=== PATIENT | male | born 1960 | race Caucasian/White ===

== ENCOUNTER 2021-12-29 19:41 | Inpatient (IN) ==
[2021-12-30] MEDS ORDERED: Ondansetron 4 MG/2 ML VIAL IVP PRN (00:31)
[2021-12-30] MEDS ORDERED: Naloxone 0.4 MG/ML INJ IVP PRN (00:31)
[2021-12-30] MEDS ORDERED: Thiamine (B-1) 100 MG in 0.9 % Sodium Chloride 50 ML IVPB STA (00:33)
[2021-12-30] MEDS ORDERED: *HR* LORazepam 2 MG/ML VIAL IVP PRN ×3 (00:33)
[2021-12-30 00:43] LABS: VBG HCO3 17 mEq/L (21-27); VBG PCO2 34 mmHg (41-51); VBG PO2 96 mmHg (25-50)
[2021-12-30 00:52] LABS: Acetaminophen < 10 mcg/mL (10-20); Creatine Kinase 127 Units/L (30-223); Salicylate < 2.5 mg/dL (15.0-30.0)
[2021-12-30 01:04] LABS: Basophils # 0.1 K/mcL (0.0-0.2); Basophils % 0.6 %; Eosinophils # 0.1 K/mcL (0.0-0.6); Eosinophils % 0.7 %; Hematocrit 29.9 % (37.5-50.1); Hemoglobin 10.9 g/dL (12.9-16.9); Immature Granulocytes % 0.5 % (0-4); Lymphocytes # 1.6 K/mcL (0.6-4.6); Lymphocytes % 19.9 %; Mean Corpuscular HGB Conc 36.5 g/dL (31.6-35.5); Mean Corpuscular Hemoglobin 35.4 pg (28.0-33.3); Mean Corpuscular Volume 97.1 fL (83.0-100.0); Mean Platelet Volume 9.4 fL (9.4-12.4); Monocytes % 12.7 %; Neutrophils # 5.3 K/mcL (1.6-8.9); Platelet Count 202 K/mcL (140-400); Red Blood Count 3.08 M/mcL (4.19-5.50); Red Cell Distribution Width 13.9 % (11.5-14.5); Segmented Neutrophils % 65.6 %; White Blood Count 8.1 K/mcL (4.3-11.1)
[2021-12-30 01:06] LABS: Alanine Aminotransferase 14 Units/L (7-52); Albumin 3.6 g/dL (3.5-5.7); Albumin/Globulin Ratio 1.3 (1.1-2.2); Alkaline Phosphatase 57 Units/L (34-104); Aspartate Amino Transferase 18 Units/L (13-39); BUN/Creatinine Ratio 18 (6-26); Bilirubin,Total 0.7 mg/dL (0.3-1.0); Blood Urea Nitrogen 16 mg/dL (8-23); Calcium 8.2 mg/dL (8.6-10.3); Carbon Dioxide 16 mEq/L (23-29); Chloride 103 mEq/L (98-107); Globulin 2.7 g/dL (2.4-3.5); Glucose 86 mg/dL (70-105); Magnesium 2.1 mg/dL (1.6-2.6); Osmolality,Calculated 266 (280-300); Phosphorous 3.7 mg/dL (2.7-4.5); Potassium 3.7 mEq/L (3.5-5.1); Sodium 128 mEq/L (136-145); Total Protein 6.3 g/dL (6.4-8.9); eGFR For African Americans > 60 (> 60); eGFR For Non-African Americans > 60 (> 60)
[2021-12-30] MEDS: Calcium Gluconate 1gm/50mL 1 GM/50 ML BAG IVPB SCH ×2 (02:07→03:08)
[2021-12-30 03:29] LABS: Prothrombin Time 11.5 Seconds (9.4-12.1)
[2021-12-30 03:32] LABS: Activated Partial Thrombo Time 28.9 Seconds (26.0-36.0)
[2021-12-30] MEDS ORDERED: Phenytoin 1,000 MG, 0.22 MICRON FILTER SET 1 EACH in 0.9 % Sodium Chloride 50 ML IVPB ONE (05:06)
[2021-12-30] MEDS ORDERED: D5% in Water 1,000 ML IVC PRN (05:15)
[2021-12-30] MEDS ORDERED: *HR* Dextrose 50 % in Water (Syg) 50 ML SYRINGE IVP PRN (05:15)
[2021-12-30] MEDS ORDERED: Dextrose 4 GM Chewable Tablets PO PRN ×2 (05:15)
[2021-12-30] MEDS: *HR* Enoxaparin 40 MG/0.4 ML SYRINGE SQ SCH (06:08)
[2021-12-30 07:00] LABS: Thyroid Stimulating Hormone 2.144 mcIU/mL (0.340-5.600)
[2021-12-30] MEDS: 0.9 % Sodium Chloride 1,000 ML IVC SCH ×2 (07:09→21:21)
[2021-12-30] MEDS: Thiamine (B-1) 100 MG TABLET PO SCH (11:32)
[2021-12-30] MEDS: Nicotine 14 MG PATCH.TD24 TD SCH (11:32)
[2021-12-30] MEDS: Folic Acid 1 MG TABLET PO SCH (11:32)
[2021-12-30] MEDS: Lactobacillus 1 EACH CAP.SPRINK PO SCH ×2 (11:32→21:23)
[2021-12-30] MEDS: Doxycycline 100 MG CAPSULE PO SCH ×2 (11:32→21:23)
[2021-12-30] MEDS: Vitamin B Complex/Vit C/Vit E 1 EACH TABLET PO SCH (11:32)
[2021-12-30] MEDS: Cyanocobalamin (B-12) 1,000 MCG TABLET PO SCH (11:34)
[2021-12-30] MEDS: PrednisoLONE Acetate 1% Opth 5 ML BOTTLE LEFT EYE SCH ×2 (11:34→21:23)
[2021-12-30] MEDS: Melatonin 3 MG TABLET PO PRN (21:23)
[2021-12-31 01:29] LABS: Basophils # 0.1 K/mcL (0.0-0.2); Basophils % 0.7 %; Eosinophils # 0.1 K/mcL (0.0-0.6); Eosinophils % 1.8 %; Hematocrit 29.5 % (37.5-50.1); Hemoglobin 10.6 g/dL (12.9-16.9); Immature Granulocytes % 0.4 % (0-4); Lymphocytes # 1.9 K/mcL (0.6-4.6); Lymphocytes % 25.2 %; Mean Corpuscular HGB Conc 35.9 g/dL (31.6-35.5); Mean Corpuscular Hemoglobin 35.7 pg (28.0-33.3); Mean Corpuscular Volume 99.3 fL (83.0-100.0); Mean Platelet Volume 9.7 fL (9.4-12.4); Monocytes # 0.8 K/mcL (0.0-1.3); Monocytes % 9.9 %; Neutrophils # 4.7 K/mcL (1.6-8.9); Platelet Count 218 K/mcL (140-400); Red Blood Count 2.97 M/mcL (4.19-5.50); Red Cell Distribution Width 14.2 % (11.5-14.5); White Blood Count 7.6 K/mcL (4.3-11.1)
[2021-12-31 01:50] LABS: Alanine Aminotransferase 14 Units/L (7-52); Albumin 3.5 g/dL (3.5-5.7); Albumin/Globulin Ratio 1.5 (1.1-2.2); Alkaline Phosphatase 63 Units/L (34-104); Aspartate Amino Transferase 16 Units/L (13-39); BUN/Creatinine Ratio 24 (6-26); Bilirubin,Total 0.5 mg/dL (0.3-1.0); Blood Urea Nitrogen 20 mg/dL (8-23); Calcium 8.1 mg/dL (8.6-10.3); Carbon Dioxide 19 mEq/L (23-29); Chloride 106 mEq/L (98-107); Globulin 2.3 g/dL (2.4-3.5); Glucose 144 mg/dL (70-105); Magnesium 1.6 mg/dL (1.6-2.6); Osmolality,Calculated 277 (280-300); Phosphorous 3.7 mg/dL (2.7-4.5); Potassium 4.2 mEq/L (3.5-5.1); Sodium 131 mEq/L (136-145); Total Protein 5.8 g/dL (6.4-8.9); eGFR For African Americans > 60 (> 60); eGFR For Non-African Americans > 60 (> 60)
[2021-12-31 01:51] LABS: % Iron Saturation 48 % (20-55); Iron 110 mcg/dL (65-175); Transferrin 163 mg/dL (203-362)
[2021-12-31 02:08] LABS: Ferritin 229 ng/mL (20-250)
[2021-12-31 02:13] LABS: Folate 7.1 ng/mL (3.0-16.0)
[2021-12-31 02:20] LABS: Vitamin B12 > 1500 pg/mL (250-1100)
[2021-12-31] MEDS: *HR* Enoxaparin 40 MG/0.4 ML SYRINGE SQ SCH (06:07)
[2021-12-31] MEDS: Vitamin B Complex/Vit C/Vit E 1 EACH TABLET PO SCH (07:56)
[2021-12-31] MEDS: Thiamine (B-1) 100 MG TABLET PO SCH (07:56)
[2021-12-31] MEDS: Lactobacillus 1 EACH CAP.SPRINK PO SCH ×2 (07:56→20:14)
[2021-12-31] MEDS: Cyanocobalamin (B-12) 1,000 MCG TABLET PO SCH (07:56)
[2021-12-31] MEDS: Doxycycline 100 MG CAPSULE PO SCH ×2 (07:56→20:13)
[2021-12-31] MEDS: Nicotine 14 MG PATCH.TD24 TD SCH (07:57)
[2021-12-31] MEDS: Folic Acid 1 MG TABLET PO SCH (07:57)
[2021-12-31] MEDS: PrednisoLONE Acetate 1% Opth 5 ML BOTTLE LEFT EYE SCH ×2 (07:59→20:15)
[2021-12-31] MEDS: Melatonin 3 MG TABLET PO PRN (20:13)
[2022-01-01] MEDS ORDERED: Haloperidol Lactate 5 MG/ML VIAL IM ONE (00:28)
[2022-01-01] MEDS: *HR* Enoxaparin 40 MG/0.4 ML SYRINGE SQ SCH (06:30)
[2022-01-01] MEDS: Cyanocobalamin (B-12) 1,000 MCG TABLET PO SCH (07:29)
[2022-01-01] MEDS: Thiamine (B-1) 100 MG TABLET PO SCH (07:29)
[2022-01-01] MEDS: Folic Acid 1 MG TABLET PO SCH (07:29)
[2022-01-01] MEDS: Vitamin B Complex/Vit C/Vit E 1 EACH TABLET PO SCH (07:29)
[2022-01-01] MEDS: Lactobacillus 1 EACH CAP.SPRINK PO SCH ×2 (07:30→20:35)
[2022-01-01] MEDS: Doxycycline 100 MG CAPSULE PO SCH ×2 (09:35→20:35)
[2022-01-01] MEDS: Nicotine 14 MG PATCH.TD24 TD SCH (09:36)
[2022-01-01] MEDS: PrednisoLONE Acetate 1% Opth 5 ML BOTTLE LEFT EYE SCH ×2 (09:36→20:36)
[2022-01-01] MEDS: traZODone 50 MG TABLET PO PRN (20:35)
[2022-01-02] MEDS: *HR* Enoxaparin 40 MG/0.4 ML SYRINGE SQ SCH (06:51)
[2022-01-02 08:19] LABS: Basophils # 0.1 K/mcL (0.0-0.2); Basophils % 1.2 %; Eosinophils # 0.3 K/mcL (0.0-0.6); Eosinophils % 4.1 %; Hematocrit 34.3 % (37.5-50.1); Hemoglobin 11.7 g/dL (12.9-16.9); Immature Granulocytes % 0.4 % (0-4); Lymphocytes # 2.2 K/mcL (0.6-4.6); Lymphocytes % 29.2 %; Mean Corpuscular HGB Conc 34.1 g/dL (31.6-35.5); Mean Corpuscular Hemoglobin 33.9 pg (28.0-33.3); Mean Corpuscular Volume 99.4 fL (83.0-100.0); Mean Platelet Volume 9.5 fL (9.4-12.4); Monocytes # 0.8 K/mcL (0.0-1.3); Monocytes % 10.7 %; Platelet Count 290 K/mcL (140-400); Red Blood Count 3.45 M/mcL (4.19-5.50); Red Cell Distribution Width 14.2 % (11.5-14.5); Segmented Neutrophils % 54.4 %; White Blood Count 7.4 K/mcL (4.3-11.1)
[2022-01-02 08:35] LABS: BUN/Creatinine Ratio 29 (6-26); Blood Urea Nitrogen 23 mg/dL (8-23); Carbon Dioxide 22 mEq/L (23-29); Chloride 102 mEq/L (98-107); Glucose 90 mg/dL (70-105); Magnesium 1.5 mg/dL (1.6-2.6); Osmolality,Calculated 275 (280-300); Potassium 4.2 mEq/L (3.5-5.1); Sodium 131 mEq/L (136-145); eGFR For African Americans > 60 (> 60); eGFR For Non-African Americans > 60 (> 60)
[2022-01-02] MEDS: Thiamine (B-1) 100 MG TABLET PO SCH (09:59)
[2022-01-02] MEDS: Vitamin B Complex/Vit C/Vit E 1 EACH TABLET PO SCH (09:59)
[2022-01-02] MEDS: Cyanocobalamin (B-12) 1,000 MCG TABLET PO SCH (09:59)
[2022-01-02] MEDS: Lactobacillus 1 EACH CAP.SPRINK PO SCH ×2 (09:59→20:06)
[2022-01-02] MEDS: Doxycycline 100 MG CAPSULE PO SCH ×2 (09:59→20:06)
[2022-01-02] MEDS: Folic Acid 1 MG TABLET PO SCH (09:59)
[2022-01-02] MEDS: Nicotine 14 MG PATCH.TD24 TD SCH (10:00)
[2022-01-02] MEDS: PrednisoLONE Acetate 1% Opth 5 ML BOTTLE LEFT EYE SCH ×2 (10:01→20:06)
[2022-01-02] MEDS: traZODone 50 MG TABLET PO PRN (20:06)
[2022-01-02] MEDS: Melatonin 3 MG TABLET PO PRN (20:06)
[2022-01-03] MEDS: *HR* Enoxaparin 40 MG/0.4 ML SYRINGE SQ SCH (04:59)
[2022-01-03] MEDS: Doxycycline 100 MG CAPSULE PO SCH ×2 (08:44→20:24)
[2022-01-03] MEDS: Lactobacillus 1 EACH CAP.SPRINK PO SCH ×2 (08:45→20:24)
[2022-01-03] MEDS: Cyanocobalamin (B-12) 1,000 MCG TABLET PO SCH (08:45)
[2022-01-03] MEDS: Folic Acid 1 MG TABLET PO SCH (08:45)
[2022-01-03] MEDS: Vitamin B Complex/Vit C/Vit E 1 EACH TABLET PO SCH (08:45)
[2022-01-03] MEDS: Thiamine (B-1) 100 MG TABLET PO SCH (08:45)
[2022-01-03] MEDS: Nicotine 14 MG PATCH.TD24 TD SCH (08:46)
[2022-01-03] MEDS: PrednisoLONE Acetate 1% Opth 5 ML BOTTLE LEFT EYE SCH ×2 (08:47→20:24)
[2022-01-03] MEDS: Melatonin 3 MG TABLET PO PRN (20:23)
[2022-01-03] MEDS: traZODone 50 MG TABLET PO PRN (20:24)
[2022-01-04 03:40] LABS: BUN/Creatinine Ratio 40 (6-26); Blood Urea Nitrogen 37 mg/dL (8-23); Calcium 8.4 mg/dL (8.6-10.3); Carbon Dioxide 23 mEq/L (23-29); Chloride 102 mEq/L (98-107); Glucose 98 mg/dL (70-105); Magnesium 1.7 mg/dL (1.6-2.6); Osmolality,Calculated 283 (280-300); Potassium 4.7 mEq/L (3.5-5.1); Sodium 132 mEq/L (136-145); eGFR For African Americans > 60 (> 60); eGFR For Non-African Americans > 60 (> 60)
[2022-01-04] MEDS: *HR* Enoxaparin 40 MG/0.4 ML SYRINGE SQ SCH (05:01)
[2022-01-04] MEDS: Nicotine 14 MG PATCH.TD24 TD SCH (08:34)
[2022-01-04] MEDS: Thiamine (B-1) 100 MG TABLET PO SCH (08:34)
[2022-01-04] MEDS: Vitamin B Complex/Vit C/Vit E 1 EACH TABLET PO SCH (08:34)
[2022-01-04] MEDS: Doxycycline 100 MG CAPSULE PO SCH (08:34)
[2022-01-04] MEDS: Folic Acid 1 MG TABLET PO SCH (08:34)
[2022-01-04] MEDS: Lactobacillus 1 EACH CAP.SPRINK PO SCH (08:34)
[2022-01-04] MEDS: Cyanocobalamin (B-12) 1,000 MCG TABLET PO SCH (08:34)
[2022-01-04] MEDS: PrednisoLONE Acetate 1% Opth 5 ML BOTTLE LEFT EYE SCH (08:35)
[2022-01-05] MEDS: Lactobacillus 1 EACH CAP.SPRINK PO SCH ×3 (00:34→20:05)
[2022-01-05] MEDS: PrednisoLONE Acetate 1% Opth 5 ML BOTTLE LEFT EYE SCH ×3 (00:35→20:06)
[2022-01-05] MEDS: Doxycycline 100 MG CAPSULE PO SCH ×3 (00:35→20:05)
[2022-01-05 03:40] LABS: BUN/Creatinine Ratio 43 (6-26); Blood Urea Nitrogen 38 mg/dL (8-23); Calcium 9.1 mg/dL (8.6-10.3); Carbon Dioxide 23 mEq/L (23-29); Chloride 97 mEq/L (98-107); Glucose 95 mg/dL (70-105); Osmolality,Calculated 275 (280-300); Potassium 4.5 mEq/L (3.5-5.1); Sodium 128 mEq/L (136-145); eGFR For African Americans > 60 (> 60); eGFR For Non-African Americans > 60 (> 60)
[2022-01-05] MEDS: *HR* Enoxaparin 40 MG/0.4 ML SYRINGE SQ SCH (06:38)
[2022-01-05] MEDS: Nicotine 14 MG PATCH.TD24 TD SCH (09:56)
[2022-01-05] MEDS: Folic Acid 1 MG TABLET PO SCH (09:56)
[2022-01-05] MEDS: Vitamin B Complex/Vit C/Vit E 1 EACH TABLET PO SCH (09:56)
[2022-01-05] MEDS: Thiamine (B-1) 100 MG TABLET PO SCH (09:57)
[2022-01-05] MEDS: Cyanocobalamin (B-12) 1,000 MCG TABLET PO SCH (09:57)
[2022-01-05] MEDS: Acetaminophen 325 MG TABLET PO PRN (19:36)
[2022-01-05] MEDS: Melatonin 3 MG TABLET PO PRN (20:05)
[2022-01-05] MEDS: traZODone 50 MG TABLET PO PRN (20:05)
[2022-01-06] MEDS: *HR* Enoxaparin 40 MG/0.4 ML SYRINGE SQ SCH (05:27)
[2022-01-06 08:12] LABS: Basophils # 0.1 K/mcL (0.0-0.2); Basophils % 1.2 %; Eosinophils # 0.2 K/mcL (0.0-0.6); Eosinophils % 3.2 %; Hematocrit 32.7 % (37.5-50.1); Hemoglobin 11.1 g/dL (12.9-16.9); Immature Granulocytes % 0.4 % (0-4); Lymphocytes # 2.7 K/mcL (0.6-4.6); Lymphocytes % 38.7 %; Mean Corpuscular HGB Conc 33.9 g/dL (31.6-35.5); Mean Corpuscular Hemoglobin 34.4 pg (28.0-33.3); Mean Corpuscular Volume 101.2 fL (83.0-100.0); Mean Platelet Volume 9.7 fL (9.4-12.4); Monocytes # 0.8 K/mcL (0.0-1.3); Monocytes % 11.9 %; Neutrophils # 3.1 K/mcL (1.6-8.9); Platelet Count 267 K/mcL (140-400); Red Blood Count 3.23 M/mcL (4.19-5.50); Red Cell Distribution Width 14.3 % (11.5-14.5); Segmented Neutrophils % 44.6 %; White Blood Count 6.9 K/mcL (4.3-11.1)
[2022-01-06 08:24] LABS: BUN/Creatinine Ratio 40 (6-26); Blood Urea Nitrogen 34 mg/dL (8-23); Calcium 9.2 mg/dL (8.6-10.3); Carbon Dioxide 22 mEq/L (23-29); Chloride 102 mEq/L (98-107); Glucose 93 mg/dL (70-105); Osmolality,Calculated 279 (280-300); Potassium 4.8 mEq/L (3.5-5.1); Sodium 131 mEq/L (136-145); eGFR For African Americans > 60 (> 60); eGFR For Non-African Americans > 60 (> 60)
[2022-01-06] MEDS: Folic Acid 1 MG TABLET PO SCH (08:48)
[2022-01-06] MEDS: Cyanocobalamin (B-12) 1,000 MCG TABLET PO SCH (08:48)
[2022-01-06] MEDS: Vitamin B Complex/Vit C/Vit E 1 EACH TABLET PO SCH (08:48)
[2022-01-06] MEDS: Doxycycline 100 MG CAPSULE PO SCH (08:48)
[2022-01-06] MEDS: PrednisoLONE Acetate 1% Opth 5 ML BOTTLE LEFT EYE SCH ×2 (08:49→20:13)
[2022-01-06] MEDS: Thiamine (B-1) 100 MG TABLET PO SCH (08:49)
[2022-01-06] MEDS: Nicotine 14 MG PATCH.TD24 TD SCH (08:49)
[2022-01-06] MEDS: Lactobacillus 1 EACH CAP.SPRINK PO SCH ×2 (08:49→20:11)
[2022-01-06] MEDS: traZODone 50 MG TABLET PO PRN (20:11)
[2022-01-06] MEDS: Acetaminophen 325 MG TABLET PO PRN (20:11)
[2022-01-06] MEDS: Melatonin 3 MG TABLET PO PRN (20:12)
[2022-01-07 07:46] VITALS: BP 106/61; PULSE 70; TEMP 98.2; O2SAT 99
[2022-01-07] MEDS: *HR* Enoxaparin 40 MG/0.4 ML SYRINGE SQ SCH (10:49)
[2022-01-07] MEDS: Lactobacillus 1 EACH CAP.SPRINK PO SCH (10:49)
[2022-01-07] MEDS: PrednisoLONE Acetate 1% Opth 5 ML BOTTLE LEFT EYE SCH (10:50)
[2022-01-07] MEDS: Folic Acid 1 MG TABLET PO SCH (10:50)
[2022-01-07] MEDS: Vitamin B Complex/Vit C/Vit E 1 EACH TABLET PO SCH (10:50)
[2022-01-07] MEDS: Nicotine 14 MG PATCH.TD24 TD SCH (10:50)
[2022-01-07] MEDS: Thiamine (B-1) 100 MG TABLET PO SCH (10:50)
[2022-01-07] MEDS: Cyanocobalamin (B-12) 1,000 MCG TABLET PO SCH (10:50)
== END 2022-01-07 12:39 | disposition home or self-care (01) | DRG 896 ==
LOC: 2ANU → SUATTDRO 12-30 11:50
PROVIDERS: ADMIT Internal Medicine; ATTEND Family Medicine

== ENCOUNTER 2022-02-11 21:30 | Inpatient (IN) ==
[2022-02-12] MEDS ORDERED: Ondansetron 4 MG/2 ML VIAL IVP PRN (01:18)
[2022-02-12] MEDS ORDERED: Naloxone 0.4 MG/ML INJ IVP PRN (01:18)
[2022-02-12] MEDS ORDERED: Acetaminophen 325 MG TABLET PO PRN (01:18)
[2022-02-12 02:13] LABS: Bilirubin,Urine Negative (Negative); Blood,Urine Negative (Negative); Clarity,Urine Clear (Clear); Color,Urine Colorless (Yellow); Glucose,Urine (UA) Normal (Normal); Ketones,Urine Negative (Negative); Leukocyte Esterase,Urine Negative (Negative); Nitrite,Urine Negative (Negative); Protein,Urine Negative (Neg-Trace); Specific Gravity,Urine 1.006 (1.010-1.025); Urobilinogen,Urine Normal (Normal)
[2022-02-12 02:14] LABS: Potassium,Urine 10.3 mEq/L; Sodium, Urine 46.6 mEq/L
[2022-02-12 02:23] LABS: Amphetamine Screen,Urine Negative ng/mL (Cutoff=1000); Barbiturate Screen,Urine Negative ng/mL (Cutoff=200); Benzodiazepines Screen,Urine Negative ng/mL (Cutoff=200); Cannabinoid Screen,Urine Negative ng/mL (Cutoff = 50); Cocaine Screen,Urine Negative ng/mL (Cutoff= 300); Opiate Screen,Urine Negative ng/mL (Cutoff=300); Phencyclidine Screen,Urine Negative ng/mL (Cutoff=25)
[2022-02-12] MEDS ORDERED: Thiamine (B-1) 100 MG in 0.9 % Sodium Chloride 50 ML IVPB ONE (02:29)
[2022-02-12] MEDS ORDERED: *HR* LORazepam 2 MG/ML VIAL IVP PRN ×3 (02:31)
[2022-02-12] MEDS ORDERED: Acetaminophen IV 500 MG/50 ML BAG IVPB ONE (02:34)
[2022-02-12] MEDS ORDERED: Nicotine 7 MG PATCH.TD24 TD PRN (02:58)
[2022-02-12 04:13] LABS: Basophils # 0.1 K/mcL (0.0-0.2); Basophils % 1.1 %; Eosinophils # 0.2 K/mcL (0.0-0.6); Eosinophils % 2.2 %; Hemoglobin 12.5 g/dL (12.9-16.9); Lymphocytes # 2.4 K/mcL (0.6-4.6); Lymphocytes % 28.8 %; Mean Corpuscular HGB Conc 33.8 g/dL (31.6-35.5); Mean Corpuscular Hemoglobin 34.3 pg (28.0-33.3); Mean Corpuscular Volume 101.6 fL (83.0-100.0); Mean Platelet Volume 10.5 fL (9.4-12.4); Monocytes # 0.8 K/mcL (0.0-1.3); Monocytes % 9.3 %; Neutrophils # 4.8 K/mcL (1.6-8.9); Platelet Count 362 K/mcL (140-400); Red Blood Count 3.64 M/mcL (4.19-5.50); Red Cell Distribution Width 13.8 % (11.5-14.5); Segmented Neutrophils % 57.6 %; White Blood Count 8.3 K/mcL (4.3-11.1)
[2022-02-12 04:19] LABS: INR 0.9; Prothrombin Time 10.5 Seconds (9.4-12.1)
[2022-02-12] MEDS: *HR* Enoxaparin 40 MG/0.4 ML SYRINGE SQ SCH (05:43)
[2022-02-12 07:31] LABS: Acetaminophen < 10 mcg/mL (10-20); BUN/Creatinine Ratio 22 (6-26); Blood Urea Nitrogen 20 mg/dL (8-23); Calcium 8.2 mg/dL (8.6-10.3); Carbon Dioxide 22 mEq/L (23-29); Chloride 103 mEq/L (98-107); Ethanol < 10 mg/dL (Less than 10); Glucose 90 mg/dL (70-105); Magnesium 1.9 mg/dL (1.6-2.6); Osmolality,Calculated 276 (280-300); Phosphorous 3.4 mg/dL (2.7-4.5); Potassium 4.4 mEq/L (3.5-5.1); Salicylate < 2.5 mg/dL (15.0-30.0); Sodium 132 mEq/L (136-145); Thyroid Stimulating Hormone 3.177 mcIU/mL (0.340-5.600); eGFR For African Americans > 60 (> 60); eGFR For Non-African Americans > 60 (> 60)
[2022-02-12] MEDS ORDERED: Phenytoin 1,000 MG, 0.22 MICRON FILTER SET 1 EACH in 0.9 % Sodium Chloride 50 ML IVPB ONE (08:00)
[2022-02-12] MEDS: Folic Acid 1 MG TABLET PO SCH (08:19)
[2022-02-12] MEDS: Vitamin B Complex/Vit C/Vit E 1 EACH TABLET PO SCH (08:19)
[2022-02-12 10:52] LABS: Folate 6.7 ng/mL (3.0-16.0)
[2022-02-12] MEDS: Thiamine (B-1) 100 MG TABLET PO SCH (15:06)
[2022-02-13] MEDS: *HR* Enoxaparin 40 MG/0.4 ML SYRINGE SQ SCH (06:07)
[2022-02-13 06:23] LABS: Hematocrit 32.7 % (37.5-50.1); Hemoglobin 11.1 g/dL (12.9-16.9); Immature Granulocytes % 0.3 % (0-4); Lymphocytes % 33.3 %; Mean Corpuscular HGB Conc 33.9 g/dL (31.6-35.5); Mean Corpuscular Hemoglobin 34.5 pg (28.0-33.3); Mean Corpuscular Volume 101.6 fL (83.0-100.0); Mean Platelet Volume 9.5 fL (9.4-12.4); Monocytes % 11.9 %; Platelet Count 320 K/mcL (140-400); Red Blood Count 3.22 M/mcL (4.19-5.50); Red Cell Distribution Width 14.1 % (11.5-14.5); Segmented Neutrophils % 51.3 %; White Blood Count 6.9 K/mcL (4.3-11.1)
[2022-02-13 06:24] LABS: Basophils # 0.1 K/mcL (0.0-0.2); Basophils % 1.3 %; Eosinophils # 0.1 K/mcL (0.0-0.6); Eosinophils % 1.9 %; Lymphocytes # 2.3 K/mcL (0.6-4.6); Monocytes # 0.8 K/mcL (0.0-1.3); Neutrophils # 3.5 K/mcL (1.6-8.9)
[2022-02-13 06:49] LABS: BUN/Creatinine Ratio 20 (6-26); Blood Urea Nitrogen 18 mg/dL (8-23); Calcium 8.4 mg/dL (8.6-10.3); Carbon Dioxide 21 mEq/L (23-29); Chloride 104 mEq/L (98-107); Glucose 114 mg/dL (70-105); Magnesium 1.9 mg/dL (1.6-2.6); Osmolality,Calculated 275 (280-300); Potassium 4.3 mEq/L (3.5-5.1); Sodium 131 mEq/L (136-145); eGFR For African Americans > 60 (> 60); eGFR For Non-African Americans > 60 (> 60)
[2022-02-13] MEDS: Folic Acid 1 MG TABLET PO SCH (08:56)
[2022-02-13] MEDS: Thiamine (B-1) 100 MG TABLET PO SCH (08:56)
[2022-02-13] MEDS: Vitamin B Complex/Vit C/Vit E 1 EACH TABLET PO SCH (08:56)
[2022-02-14 02:07] LABS: BUN/Creatinine Ratio 24 (6-26); Blood Urea Nitrogen 24 mg/dL (8-23); Carbon Dioxide 23 mEq/L (23-29); Chloride 104 mEq/L (98-107); Glucose 97 mg/dL (70-105); Magnesium 1.8 mg/dL (1.6-2.6); Osmolality,Calculated 282 (280-300); Potassium 4.8 mEq/L (3.5-5.1); Sodium 134 mEq/L (136-145); eGFR For African Americans > 60 (> 60); eGFR For Non-African Americans > 60 (> 60)
[2022-02-14 04:16] VITALS: TEMP 97.8
[2022-02-14] MEDS: *HR* Enoxaparin 40 MG/0.4 ML SYRINGE SQ SCH (05:01)
[2022-02-14 08:11] VITALS: BP 120/94; PULSE 60; O2SAT 96
[2022-02-14] MEDS: Folic Acid 1 MG TABLET PO SCH ×2 (09:27→10:04)
[2022-02-14] MEDS: Thiamine (B-1) 100 MG TABLET PO SCH ×2 (09:28→10:04)
[2022-02-14] MEDS: Vitamin B Complex/Vit C/Vit E 1 EACH TABLET PO SCH ×2 (09:28→10:04)
== END 2022-02-14 11:40 | disposition home or self-care (01) | DRG 640 ==
LOC: 2NENU → SUATTDRO 02-12 00:44
PROVIDERS: ADMIT Family Medicine; ATTEND Hospitalist